=== PATIENT | male | born 1955 | race Caucasian/White ===

== ENCOUNTER 2017-06-11 11:48 | Day surgery (SDC) | payer OTHER ==
[2017-06-11] MEDS ORDERED: MIDAZOLAM 1 MG/ML 2 ML INJ ×3 (19:02)
[2017-06-11] MEDS ORDERED: FENTAnyl 50 MCG/ML VIAL (19:03)
== END 2017-06-11 19:46 | disposition home or self-care (01) ==
LOC: GIL 11:48
DX: Z12.11 Encounter for screening for malignant neoplasm of colon (principal); D12.2 Benign neoplasm of ascending colon; D12.4 Benign neoplasm of descending colon; D12.5 Benign neoplasm of sigmoid colon; K64.8 Other hemorrhoids; K20.9 Esophagitis, unspecified; K44.9 Diaphragmatic hernia without obstruction or gangrene; K29.70 Gastritis, unspecified, without bleeding; I10 Essential (primary) hypertension; E78.00 Pure hypercholesterolemia, unspecified
CPT/HCPCS: 43239; 88305; 88312